=== PATIENT | male | born 2005 | race Asian ===

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

== ENCOUNTER 2024-01-19 06:56 | Emergency (ER) | payer MEDICAID ==
[2024-01-19 08:04] LABS: STREP A BY PCR DETECTED (NOT DETECT)
[2024-01-19 08:08] LABS: CORONAVIRUS COVID-19 NAA NEGATIVE (NEGATIVE); INFLUENZA A NAA NEGATIVE (NEGATIVE); INFLUENZA B NAA NEGATIVE (NEGATIVE); RESPIRATORY SYNCYTIAL VIR NAA NEGATIVE (NEGATIVE)
== END 2024-01-19 08:20 | disposition home or self-care (01) ==
LOC: VM.ED 06:56
DX: J02.0 Streptococcal pharyngitis (principal)
CPT/HCPCS: 0241U; 87651-QW; 99283; 99284